=== PATIENT | male | born 1980 | race Caucasian/White ===

== ENCOUNTER 2021-04-03 13:28 | Emergency (ER) | payer BC ==
[~2021-04-03] VITALS: Ht 175.3 cm; Wt 100.5 kg
[2021-04-03 13:39] VITALS: BP 124/83; TEMP 99.5
[2021-04-03] MEDS ORDERED: PERCOCET 325 MG1 TA2 PO (14:54)
[2021-04-03] MEDS ORDERED: MOTRIN 400400 MG/TAB PO (14:54)
[2021-04-03] MEDS ORDERED: PREDNISONE50 MG PO (14:54)
[2021-04-03 15:20] VITALS: PULSE 97
== END 2021-04-03 15:20 | disposition home or self-care (01) ==
LOC: COL.ER 13:28
DX: M25.561 Pain in right knee (principal)
CPT/HCPCS: J1885

== ENCOUNTER → 2021-05-28 | Outpatient (CLI) | payer BC ==
[~2021-05-28] MED LIST: MOTRIN 400400 MG/TAB PO; PERCOCET 325 MG1 TA2 PO; PREDNISONE50 MG PO
== END ==
LOC: COL.RAD 05-20 06:45
DX: M79.89 Other specified soft tissue disorders (principal); M25.474 Effusion, right foot; R68.89 Other general symptoms and signs

== ENCOUNTER 2022-01-12 09:39 | Emergency (ER) | payer BC ==
[~2022-01-12] VITALS: Ht 172.7 cm; Wt 100.0 kg
[2022-01-12 09:52] VITALS: TEMP 98
[2022-01-12 10:10] LABS: BASO % 0.6 % (0.0-2.0); EOS # 0.2 K/mm3 (0.0-0.7); EOS % 2.9 % (0.0-4.0); GRAN % 48.1 % (42.2-75.2); HEMATOCRIT 41.3 % (42.0-52.0); HEMOGLOBIN 14.6 g/dl (13.5-18.0); LYMPH # 2.2 K/mm3 (1.2-3.4); LYMPH % 34.9 % (20.0-51.0); MEAN CELL VOLUME 90 fl (80.0-100.0); MEAN CORPUSCULAR HEMOGLOBIN 32 pg (27-31); MEAN CORPUSCULAR HGB CONC 35 g/dl (33.0-37.0); MEAN PLATELET VOLUME 9.9 fl (7.4-10.4); MONO # 0.8 K/mm3 (0.1-0.6); MONO % 12.7 % (1.7-9.3); PLATELET COUNT 200 K/mm3 (130-400); RED BLOOD COUNT 4.57 M/mm3 (4.20-5.60); REDCELL DISTRIBUTION WIDTH-CV 11.9 % (11.5-14.5)
[2022-01-12 10:16] LABS: COLLECTION METHOD CLEAN CATCH
[2022-01-12 10:22] LABS: MUCOUS Present (NOT PRESENT); PH 5 (5-8); SQUAMOUS EPITHELIAL None Seen /hpf (0-10); URINE APPEARANCE Clear (CLEAR/HAZY); URINE BACTERIA None Seen /hpf (NONE SEEN); URINE BILIRUBIN Negative (NEGATIVE); URINE BLOOD Negative (NEGATIVE); URINE COLOR Yellow (YELLOW); URINE GLUCOSE Negative (NEGATIVE); URINE KETONE Negative (NEGATIVE); URINE LEUKOCYTE ESTERASE Negative (NEGATIVE); URINE NITRATE Negative (NEGATIVE); URINE PROTEIN(semi-quant) Negative (NEGATIVE); URINE RBC 0-2 /hpf (0-2); URINE UROBILINOGEN Negative (NEGATIVE)
[2022-01-12 10:28] LABS: ALBUMIN 4.1 gm/dL (3.5-5.0); BILIRUBIN,TOTAL 0.4 mg/dL (0.2-1.2); CALCIUM 8.9 mg/dL (8.4-10.2); CREATININE, serum 1.02 mg/dL (0.72-1.25); POTASSIUM 4.1 mmol/L (3.5-4.5); TOTAL PROTEIN 7.2 gm/dL (6.2-8.1)
[2022-01-12] MEDS ORDERED: PEPCID 20MG TAB20 MG PO (11:48)
[2022-01-12 11:59] VITALS: BP 157/103; PULSE 81
[2022-01-12] MEDS ORDERED: ZOFRAN ODT4 MG PO (12:00)
== END 2022-01-12 12:07 | disposition home or self-care (01) ==
LOC: COL.ER 09:39
PROVIDERS: Emergency Medicine
DX: R10.13 Epigastric pain (principal); R74.01 Elevation of levels of liver transaminase levels; Z98.890 Other specified postprocedural states
CPT/HCPCS: J1885

== ENCOUNTER → 2022-09-08 | Outpatient (CLI) | payer BC ==
[~2022-09-08] MED LIST changes: +PEPCID 20MG TAB20 MG PO; +ZOFRAN ODT4 MG PO
== END ==
LOC: MHCPAIN 13:05
DX: G62.9 Polyneuropathy, unspecified (principal); G57.83 Other specified mononeuropathies of bilateral lower limbs; M47.817 Spondylosis without myelopathy or radiculopathy, lumbosacral region; M54.50 Low back pain, unspecified
CPT/HCPCS: G0463

== ENCOUNTER 2023-02-09 02:55 | Emergency (ER) | payer OTHER ==
[~2023-02-09] VITALS: Ht 172.7 cm; Wt 100.0 kg
[2023-02-09 03:00] VITALS: TEMP 98.2
[2023-02-09 03:37] VITALS: BP 139/89; PULSE 79
== END 2023-02-09 03:37 | disposition home or self-care (01) ==
LOC: COL.ER 02:55
DX: M25.561 Pain in right knee (principal); G89.29 Other chronic pain; G62.9 Polyneuropathy, unspecified; T42.6X6A Underdosing of other antiepileptic and sedative-hypnotic drugs, initial encounter; Z76.0 Encounter for issue of repeat prescription; Z91.128 Patient's intentional underdosing of medication regimen for other reason

== ENCOUNTER 2024-02-23 17:27 | Emergency (ER) | payer SELFPAY ==
[~2024-02-23] VITALS: Ht 172.7 cm; Wt 104.5 kg
[2024-02-23 17:40] VITALS: TEMP 98
[2024-02-23] MEDS ORDERED: PREDNISONE20 MG PO (18:00)
[2024-02-23] MEDS ORDERED: VALTREX1 GM PO (18:02)
[2024-02-23] MEDS ORDERED: SYSTANE GEL EYE10 ML OP (18:02)
[2024-02-23] MEDS ORDERED: ROBAXIN 75750 MG/TAB PO (18:14)
[2024-02-23] MEDS ORDERED: NEURONTIN800 MG/TAB PO (18:14)
[2024-02-23] MEDS ORDERED: PROVIGIL200 MG PO (18:14)
[2024-02-23] MEDS ORDERED: Carboxymethylcellulose PF Ophth 0.4 ML DROPPERETTE OP ONE (18:15)
[2024-02-23] MEDS ORDERED: predniSONE 50 MG,predniSONE 10 MG PO ONE (18:15)
[2024-02-23 18:44] VITALS: BP 158/109; PULSE 57
== END 2024-02-23 18:49 | disposition home or self-care (01) ==
LOC: COL.ER 17:27
DX: G51.0 Bell's palsy (principal)
CPT/HCPCS: J7512